=== PATIENT | female | born 1960 | race Caucasian/White ===

== ENCOUNTER 2019-12-05 07:02 | Day surgery (SDC) | payer OTHER ==
[~2019-12-05] VITALS: Ht 162.6 cm; Wt 58.9 kg
[~2019-12-05 07:02] MED LIST: HYDROmorphone 2 MG/ML VIAL IV PRN; IV RINGERS,LACTATED 1000ML 1,000 ML IV SCH; MORPHINE SULFATE 2 MG/ML VIAL. IV PRN; ONDANSETRON PF 4 MG/2 ML VIAL. IV PRN; PROCHLORPERAZINE 10 MG/2 ML VIAL. IV PRN; ceFAZolin SODIUM IV Push 1 GM VIAL. IVP PRN; fentaNYL PF VIAL 100 MCG/2 ML VIAL IV PRN
[2019-12-05] MEDS ORDERED: LIDOCAINE 2% PF 5 ML VIAL. ONE (08:09)
[2019-12-05] MEDS ORDERED: DEXAMETHASONE SOD PHOS 4 MG/ML VIAL ONE ×2 (08:09→09:20)
[2019-12-05] MEDS ORDERED: PROPOFOL 10 MG/ML (20ML) VIAL. IV ONE (08:09)
[2019-12-05] MEDS ORDERED: ONDANSETRON PF 4 MG/2 ML VIAL. ONE (08:09)
[2019-12-05] MEDS ORDERED: SUCCINYLCHOLINE 200 MG/10 ML VIAL. ONE (08:10)
[2019-12-05] MEDS ORDERED: fentaNYL PF VIAL 100 MCG/2 ML VIAL ONE ×2 (08:10→09:58)
[2019-12-05] MEDS ORDERED: ROCURONIUM 50 MG/5 ML VIAL. ONE (08:10)
[2019-12-05] MEDS ORDERED: MIDAZOLAM HCL/PF 2 MG/2 ML VIAL. ONE (08:10)
[2019-12-05] MEDS ORDERED: SURGICEL HEMOSTAT 4X8 EACH. ONE (08:11)
[2019-12-05] MEDS ORDERED: BUPIVACAINE-EPI 0.5%-1:200000 MPF 30 ML VIAL. ONE (08:12)
[2019-12-05] MEDS ORDERED: BUPIVACAINE MPF 0.25% 30 ML VIAL. ONE (08:12)
[2019-12-05] MEDS ORDERED: FAMOTIDINE 20 MG/2 ML VIAL ONE (08:14)
[2019-12-05] MEDS ORDERED: NEOSTIGMINE METHYLSULFATE 5 MG/5 ML SYRINGE. ONE (09:20)
[2019-12-05] MEDS ORDERED: GLYCOPYRROLATE 1 MG/5 ML VIAL. ONE (09:20)
[2019-12-05] MEDS ORDERED: SEVOFLURANE 31 TO 60 MINUTES. IH ONE (09:27)
--- NOTE | 2019-12-05 09:36 | PDOC ---
BRIEF OPERATIVE NOTE Date: Dec 05, 2019 Pre-Op Diagnosis FLAKITO Cyst Post-Op Diagnosis Same Procedure Performed [facility] BSO Surgeon Dr. Polanco Anesthesia Type: General Blood Loss 5 ml Specimens Obtained Oziel. fallopian tubes and ovaries Findings FLAKITO Cyst 3 cm size Complications none Operative Note see dictation RODRIGO POLANCO Jr, MD Dec 05, 2019 09:36
--- NOTE | 2019-12-05 09:38 | DISCH ---
DISCHARGE INSTRUCTIONS Condition on Discharge Condition on Discharge: Stable Activity After Discharge Activity Instructions for Disc: Activity as tolerated Lifting Instructions after Dis: No heavy lifting Driving Instructions after Dis: Do not drive today Diet after Discharge Diet after Discharge: Regular Contacting the DRMary Kate after DC Call your doctor for: Concerns you may have Follow-Up Follow up with: Dr. Polanco in 1 wk RODRIGO POLANCO Jr, MD Dec 05, 2019 09:38
--- NOTE | 2019-12-05 09:52 | OP ---
DATE OF SURGERY: PREOPERATIVE DIAGNOSIS: Left ovarian cyst. POSTOPERATIVE DIAGNOSIS: Left ovarian cyst. PROCEDURE: Laparoscopic BSO. SURGEON: Priyank Polanco MD. ANESTHESIA: GETA. ESTIMATED BLOOD LOSS: 5 mL. COMPLICATIONS: None. FINDINGS: Left ovarian cyst, 3 cm size. Bilateral fallopian tubes appeared normal. Right ovary appeared normal. SUMMARY: A 59-year-old with a persistent left ovarian cyst, postmenopausal, required laparoscopic BSO. She was counseled on the risks, benefits and expectations and voiced clear understanding to proceed. DESCRIPTION OF PROCEDURE: The patient was taken to surgery suite and placed in dorsal lithotomy position, was prepped with Betadine solution for vaginal prep and ChloraPrep for abdominal prep. After adequate anesthesia, moist sponge stick was placed vaginally. We then proceeded to the abdomen. A small transverse skin incision was made just below the umbilicus. The Veress needle was then placed through the infraumbilical incision site. The abdomen was allowed to insufflate up to 1-1/2 liters CO2 gas. The Veress needle was then removed, 5 mm trocar was placed. Scope was positioned. There were few abdominal wall adhesions of the omentum. The right fallopian tube and ovary appeared normal. Left fallopian tube and ovary demonstrated a 3 cm size cyst. Left lower quadrant incision was made with a scalpel in which 5 mm trocar was placed. Incision was also made in the left lower quadrant in which an 11 mm trocar was placed. With aid of the EnSeal device, the right infundibulopelvic ligament was coagulated and dissected. The right adnexa was dissected away from the right pelvic sidewall and placed in the cul-de-sac. The omental adhesions to the abdominal wall were removed with the EnSeal device. The left fallopian tube and ovary were also dissected. The left infundibulopelvic ligament and left pelvic sidewall, both specimens were placed in the Endobag and removed. The pedicles were hemostatic bilaterally. Suction irrigation was utilized to verify good hemostasis. Small amount of normal saline was left in posterior cul-de-sac. The trocars were then removed under direct visualization. The abdomen was allowed to deflate as much as possible along with mechanical manipulation. The 11 mm port site was closed at the fascial layer using 2-0 Vicryl suture in a [id number] manner. The skin incisions were reapproximated with 4-0 Vicryl suture in subcuticular manner. A 0.5% Marcaine with epinephrine was injected at each incision site. A sponge stick was removed. The patient tolerated the procedure well and was taken to recovery room in stable condition. Sponge and needle count correct x 3. PRIYANK POLANCO MD DR: MARY KAY/brittany JOB#: [id number] / [id number]
[2019-12-05] MEDS ORDERED: OXYC1TAB15 PO (09:55)
[2019-12-05] MEDS ORDERED: oxyCODONE/APAP 5/325 1 TAB TABLET PO ONE (10:00)
[2019-12-05 10:30] VITALS: BP 100/58
== END 2019-12-05 10:55 | disposition home or self-care (01) ==
LOC: SURG 07:02
PROVIDERS: ATTEND Obstetrics & Gynecology
DX: N83.292 Other ovarian cyst, left side (principal); N95.8 Other specified menopausal and perimenopausal disorders; K66.0 Peritoneal adhesions (postprocedural) (postinfection); Z88.8 Allergy status to other drugs, medicaments and biological substances; Z72.89 Other problems related to lifestyle; Z79.899 Other long term (current) drug therapy; Z98.890 Other specified postprocedural states
CPT/HCPCS: 58661; A7015; J0330; J0690; J1100; J2250; J2405; J2704; J2710; J3010; J3490; J7030